=== PATIENT | female | born 1970 | race Caucasian/White ===

== ENCOUNTER 2019-12-16 05:36 | Day surgery (SDC) | payer OTHER ==
[2019-12-16] MEDS ORDERED: Lactated Ringers 1,000 ML IV SCH (07:00)
[2019-12-16] MEDS ORDERED: DIPRIVAN 200 MG/20 ML IV ONE ×2 (07:27→07:35)
[2019-12-16] MEDS ORDERED: Versed 2 MG/2 ML Injection ONE (07:28)
[2019-12-16 08:18] VITALS: O2SAT 95
[2019-12-16 08:50] VITALS: PULSE 72
[2019-12-16 08:51] VITALS: BP 122/65
[2019-12-16 11:12] LABS: ANION GAP 11.3 MEQ/L (5-15); BLOOD UREA NITROGEN 8 mg/dL (7-17); CHLORIDE 107 mmol/L (98-107); Calcium 9.2 mg/dL (8.4-10.2); Carbon Dioxide 26 mmol/L (22-30); Cholesterol 177 mg/dL (50-200); Creatinine 1 0.88 mg/dL (0.52-1.04); Glucose 99 mg/dL (74-106); HDL CHOLESTEROL 49 mg/dL (40-60); LDL, DIRECT 89 mg/dL (30-100); Potassium 3.6 mmol/L (3.5-5.1); Risk Ratio 3.6; SGOT/AST 22 U/L (14-36); SODIUM 142 mmol/L (137-145); TRIGLYCERIDE 386 mg/dL (30-150); Vitamin B12 709 pg/mL (239-931)
--- NOTE | 2019-12-16 11:51 | OP ---
SURGERY DATE/TIME: 12/16/2019 0727 PREOPERATIVE DIAGNOSIS: Rectal bleeding and history of colon polyps. POSTOPERATIVE DIAGNOSIS: Proctitis, otherwise normal colon. PROCEDURE: Colonoscopy with cold forceps biopsy. SURGEON: Dr. Driver. ANESTHESIA: MAC. Medications given by anesthesia department. HISTORY: The patient is a 49 year-old white female presenting now for a colonoscopic evaluation. She reports she has had rectal bleeding intermittently since June. The patient reports she previously had a colonoscopy three years ago which she had polyps found. The patient is felt to need to have endoscopic evaluation and was apprised of the risks of the procedure including the risk of perforation, phlebitis, untoward reaction to medication, bleeding and missed lesions. The patient verbalized her understanding and desired to have the procedure performed. DESCRIPTION OF PROCEDURE: The patient was given the medications by the anesthesia department. She had continuous pulse oximetry, ECG monitoring, intermittent blood pressure monitoring and tidal CO2 monitoring during the examination. She was placed in the left lateral decubitus position. A digital rectal examination was performed and revealed normal anal sphincter tone and no masses. The flexible Olympus pediatric colonoscope was used to intubate the rectum. A view of the colon was developed sequentially to the cecum. Upon insertion and withdrawal, including a retroflex view in the rectum was noted proctitis measuring approximately 5 cm of the anal verge this is biopsied using cold biopsy technique. No other mucosal lesions being encountered, the scope was removed from the patient who tolerated the procedure well and was sent back to OP recovery in good condition. The prep was noted to be fair to good.
== END 2019-12-16 08:51 | disposition home or self-care (01) ==
LOC: SDC 05:36
PROVIDERS: ATTEND Family Medicine
DX: K62.5 Hemorrhage of anus and rectum (principal); K52.9 Noninfective gastroenteritis and colitis, unspecified; K62.89 Other specified diseases of anus and rectum; Z86.010 Personal history of colon polyps; I10 Essential (primary) hypertension; I51.9 Heart disease, unspecified; J44.9 Chronic obstructive pulmonary disease, unspecified; Z79.01 Long term (current) use of anticoagulants; Z79.899 Other long term (current) drug therapy
CPT/HCPCS: 36415; 80048; 80061; 82607; 83721; 84450; J2250; J2704

== ENCOUNTER → 2022-02-19 | Day surgery (SDC) | payer MEDICAID ==
[~2022-02-19] MED LIST: Decadron 4 MG INJ IV ONE; Lactated Ringers 1,000 ML IV ONE; Sodium Chloride 0.9(Preservative Free) 10 ML IJ ONE; Xylocaine 1% Vial 30 ML PF IJ ONE
--- NOTE | 2022-02-19 20:01 | XRAY ---
Indication: Cervical AYDEE. Intraoperative fluoroscopy provided for 52 seconds. 2 digital spot images submitted for interpretation demonstrates midline posterior needle tip projecting posterior to cervical thoracic junction. Small amount of contrast injected for needle tip placement. Correlate with intraoperative findings/report. Incidental lower cervical fusion hardware.
--- NOTE | 2022-02-20 09:41 | XRAY ---
52 seconds of fluoroscopy was used in surgery for a cervical AYDEE.
== END ==
LOC: SDC-PAIN 14:08
PROVIDERS: ATTEND Psychiatry & Neurology Pain Medicine
DX: M54.12 Radiculopathy, cervical region (principal); I10 Essential (primary) hypertension; Z79.899 Other long term (current) drug therapy
CPT/HCPCS: 62321; 72040; 77003; J1100; J2001; Q9966